=== PATIENT | female | born 1950 | race Hispanic/Latino ===

== ENCOUNTER 2016-11-15 15:24 | Emergency (ER) | payer OTHER, MEDICARE ==
[~2016-11-15] VITALS: Ht 160 cm; Wt 136.4 kg
[2016-11-15 15:28] VITALS: BP 143/71; PULSE 81; RESP 22; O2SAT 98
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
[2016-11-15] MEDS ORDERED: 0.9% Sodium Chloride 1,000 ML IV ONE (15:50)
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
[2016-11-15 17:24] LABS: BASOPHILS % (AUTO) 0.3 % (0-3); EOSINOPHILS % (AUTO) 2.7 % (0-5); MONOCYTES % (AUTO) 9.2 % (4-12); Mean Corpuscular Hemoglobin 29.2 pg (27.0-35.0); Mean Corpuscular Volume 88.5 fL (81-100); NEUTROPHILS % (AUTO) 60.8 % (40-74); Platelet Count 202 bil/L (150-400)
[2016-11-15 17:42] LABS: INR 0.95 ratio
[2016-11-15 18:03] VITALS: BP 134/78; PULSE 72; RESP 18; O2SAT 98
== END 2016-11-15 18:05 | disposition home or self-care (01) ==
LOC: SED 15:24
DX: S09.8XXA Other specified injuries of head, initial encounter (principal); M25.511 Pain in right shoulder; V43.62XA Car passenger injured in collision with other type car in traffic accident, initial encounter; Y93.89 Activity, other specified; Y92.410 Unspecified street and highway as the place of occurrence of the external cause; Y99.8 Other external cause status; I10 Essential (primary) hypertension; Z90.710 Acquired absence of both cervix and uterus
CPT/HCPCS: 36415; 70450; 71010; 72125; 72170; 73030; 80053; 85025; 85610; 86850; 93005; 96360; 99285; J7030